=== PATIENT | female | born 1970 | race American Indian/Alaskan Native ===

== ENCOUNTER 2016-12-12 07:59 | Emergency (ER) | payer SELFPAY ==
[2016-12-12 09:34] LABS: Basophils % (Auto) 1.2 % (0.0-1.8); Eosinophils % (Auto) 1.1 % (0.0-4.3); Hematocrit 35.7 % (30.3-42.9); Hemoglobin 11.5 gm/dl (10.1-14.3); Mean Corpuscular HGB Conc 32 % (30-34); Mean Corpuscular Hemoglobin 27 pg (28-32); Mean Corpuscular Volume 84 fl (79-97); Platelet Count 232 K/mm3 (140-440); Red Blood Count 4.27 M/mm3 (3.65-5.03); Red Cell Distribution Width 15.6 % (13.2-15.2); White Blood Count 4.3 K/mm3 (4.5-11.0)
[2016-12-12 09:47] LABS: Alanine Aminotransferase 8 units/L (7-56); Albumin 3.6 g/dL (3.9-5); Albumin/Globulin Ratio 0.9 %; Alkaline Phosphatase 56 units/L (35-129); Anion Gap 14 mmol/L; BUN/Creatinine Ratio 14.28; Blood Urea Nitrogen 10 mg/dL (7-17); Calcium 8.9 mg/dL (8.4-10.2); Carbon Dioxide 25 mmol/L (22-30); Chloride 103.4 mmol/L (98-107); Glucose 84 mg/dL (65-100); Lipase 49 units/L (13-60); Potassium 4.5 mmol/L (3.6-5.0); Sodium 138 mmol/L (137-145); Total Protein 7.4 g/dL (6.3-8.2)
[2016-12-12] MEDS ORDERED: NACL 0.9% 1000 ML 1,000 ML IV ONE (09:53)
[2016-12-12] MEDS ORDERED: MILK OF MAGNESIA PO ONE (09:54)
[2016-12-12 10:06] LABS: Bacteria,Urine 1+ /HPF (Negative); Bilirubin,Urine NEG (Negative); Blood,Urine NEG (Negative); Ketones,Urine NEG (Negative); Leukocyte Esterase,Urine NEG (Negative); Mucus,Urine FEW /HPF; Nitrite,Urine NEG (Negative); Protein,Urine <15 mg/dL mg/dL (Negative); Urobilinogen,Urine < 2.0 mg/dL (<2.0)
[2016-12-12] MEDS ORDERED: NACL ONE (12:11)
--- NOTE | 2016-12-12 12:43 | Emergency Department Report ---
ED Abdominal Pain HPI - General Chief Complaint: Abdominal Pain Stated Complaint: ABD PAIN Time Seen by Provider: 12/12/16 09:50 Source: patient Mode of arrival: Ambulatory Limitations: No Limitations - History of Present Illness MD Complaint: abdominal pain -: Gradual Location: diffuse, periumbilical Radiation: none Migration to: periumbilical Severity scale (0 -10): 0 Quality: cramping Consistency: constant Improves With: nothing Worsens With: nothing Associated Symptoms: denies other symptoms - Related Data Previous Rx's Medication Instructions Recorded Last Taken Type traMADol [Ultram] 50 mg PO Q6HR PRN #20 tablet 12/12/16 Unknown Rx Allergies Allergy/AdvReac Type Severity Reaction Status Date / Time No Known Allergies Allergy Verified 12/12/16 08:50 ED Review of Systems ROS: Stated complaint: ABD PAIN Other details as noted in HPI Comment: All other systems reviewed and negative Gastrointestinal: abdominal pain, nausea Musculoskeletal: as per HPI Skin: as per HPI ED Past Medical Hx - Past Medical History Previous Medical History?: No - Surgical History Past Surgical History?: No - Social History Smoking Status: Current Every Day Smoker Substance Use Type: Prescribed - Medications Home Medications: Home Medications Medication Instructions Recorded Confirmed Last Taken Type traMADol [Ultram] 50 mg PO Q6HR PRN #20 tablet 12/12/16 Unknown Rx ED Physical Exam - General Limitations: No Limitations General appearance: alert, in no apparent distress - Head Head exam: Present: atraumatic - Eye Eye exam: Present: normal appearance - ENT ENT exam: Present: normal exam - GI/Abdominal GI/Abdominal exam: Present: soft, normal bowel sounds - Extremities Exam Extremities exam: Present: normal inspection - Back Exam Back exam: Present: normal inspection ED Course Vital Signs 12/12/16 12/12/16 12/12/16 08:50 10:18 11:56 Temperature 98.3 F 98.2 F Pulse Rate 58 L 62 55 L Respiratory 17 18 18 Rate Blood Pressure 140/95 Blood Pressure 132/78 152/87 [Left] O2 Sat by Pulse 100 100 Oximetry 12/12/16 15:22 Temperature Pulse Rate 62 Respiratory 16 Rate Blood Pressure Blood Pressure 132/74 [Left] O2 Sat by Pulse 98 Oximetry - Reevaluation(s) Reevaluation #1: 12/12/16 14:46 SPOKE WITH PATIENT AT LENGTH REGARDING CT SCAN FINDINGS. SHE STATES SHE WAS TOLD TWO YEARS AGO, SHE WAS TOLD SHE HAD A MASS FROM [place] WAS TRANSFERRED FROM [facility] TO [place] BUT AT [place] SHE WAS ADVISED TO F/U WITH [facility]OUNT[facility] BUT SHE NEVER DID. . I [facility]PO[facility]ITTMAN[facility] WHO REC[facility]MENDED D/C HOME, F/U WITH HER ON THURSDAY. 12/12/16 15:31 ED Medical Decision Making - Lab Data Result diagrams: 12/12/16 09:14 12/12/16 09:14 Critical care attestation.: If time is entered above; I have spent that time in minutes in the direct care of this critically ill patient, excluding procedure time. ED Disposition Clinical Impression: Pelvic mass in female Disposition: DC- TO HOME OR SELFCARE Is pt being admited?: No Does the pt Need Aspirin: No Condition: Stable Instructions: Abdominal Pain (ED) Prescriptions: traMADol [Ultram] 50 mg PO Q6HR PRN #20 tablet PRN Reason: Pain Referrals: YOLIE ALLEN MD [Staff Physician] - 3-5 Days KAREN PITTMAN MD [Staff Physician] - 3-5 Days PRIMARY [facility]ARE, [Primary Care Provider] - 3-5 Days TASHIA WOODS MD [Staff Physician] - 3-5 Days
--- NOTE | 2016-12-12 13:09 | Cat Scan Report ---
CT scan of abdomen and pelvis with IV contrast: Compared to 12/16/14. History: Abdominal pain distention. Findings: Normal lung bases. No pleural pericardial effusion. Normal liver spleen and pancreas. Normal gallbladder. Normal adrenals and kidney parenchyma and urinary bladder. Bladder is emptied and displaced. There is a large complex heterogeneous soft tissue mass occupying the entire mid and lower abdomen and extending down into the pelvis. Low density areas are identified within the mass and the mass appears lobulated. Mass measures approximately 24 x 11 x 10 cm. No significant interval change. There is moderate amount of fluid noted in the peritoneum. There is extrinsic compression noted on the adjacent bowel. There is no bowel distention or obstruction seen. Normal aorta no evidence of adenopathy. Impression: Large abdominal mass with pelvic extension, probably of ovarian origin among others. No significant interval change. Probably increase in intraperitoneal fluid.
[2016-12-12 15:23] VITALS: BP 132/74
== END 2016-12-12 15:40 | disposition home or self-care (01) ==
LOC: ED 07:59
DX: R19.00 Intra-abdominal and pelvic swelling, mass and lump, unspecified site (principal); R10.84 Generalized abdominal pain; F17.210 Nicotine dependence, cigarettes, uncomplicated
CPT/HCPCS: 36415; 74177; 80053; 81001; 83690; 84703; 85025; 96360; 96361; 99284; J7030; Q9967

== ENCOUNTER 2019-03-29 08:36 | Emergency (ER) | payer SELFPAY ==
[2019-03-29 09:29] LABS: Basophils % (Auto) 0.9 % (0.0-1.8); Eosinophils % (Auto) 0.4 % (0.0-4.3); Hematocrit 34.6 % (30.3-42.9); Hemoglobin 11.3 gm/dl (10.1-14.3); Lymphocytes # (Auto) 1.6 K/mm3 (1.2-5.4); Lymphocytes % (Auto) 34.8 % (13.4-35.0); Mean Corpuscular HGB Conc 33 % (30-34); Mean Corpuscular Volume 85 fl (79-97); Monocytes # (Auto) 0.3 K/mm3 (0.0-0.8); Monocytes % (Auto) 5.6 % (0.0-7.3); Platelet Count 221 K/mm3 (140-440); Red Blood Count 4.06 M/mm3 (3.65-5.03); Red Cell Distribution Width 15.7 % (13.2-15.2)
--- NOTE | 2019-03-29 09:43 | Emergency Department Report ---
HPI - General Chief Complaint: Abdominal Pain Time Seen by Provider: 03/29/19 09:39 - HPI HPI: 48-year-old -Swiss female presents to the emergency department with complaint of lower abdominal and pelvic pain that been going on for the past few days. It is associated with some mild dysuria. However the patient denies any nausea, vomiting, fever, vaginal bleeding or discharge. The patient says that she believes it is due to fibroids. She says she has "not had the surgery yet because I don't have insurance." The patient says that they were last evaluated "the last time I was here." In reviewing the CT scan of the abdomen and pelvis that was done here in 2017 she appears to have some unidentified pelvic mass seen in the abdomen that extends down into the pelvis and appears to be ovarian in origin. Patient does not have any primary care physician or [facility]. She has not taken anything for her symptoms prior to arrival today. ED Past Medical Hx - Past Medical History Previous Medical History?: No - Surgical History Past Surgical History?: No - Social History Smoking Status: Current Every Day Smoker Substance Use Type: None - Medications Home Medications: Home Medications Medication Instructions Recorded Confirmed Last Taken Type traMADoL [Ultram] 50 mg PO Q6HR PRN #20 tablet 12/12/16 Unknown Rx traMADoL [Ultram 50 MG tab] 50 mg PO Q8HR PRN #12 tablet 03/29/19 Unknown Rx ED Review of Systems ROS: Stated complaint: ABD PAIN Other details as noted in HPI Comment: All other systems reviewed and negative Constitutional: denies: chills, fever Gastrointestinal: abdominal pain. denies: vomiting Genitourinary: dysuria. denies: discharge, abnormal menses Musculoskeletal: denies: back pain Physical Exam - Physical Exam Vital Signs: Vital Signs 03/29/19 08:45 Temperature 97.5 F L Pulse Rate 68 Respiratory 20 Rate Blood Pressure 139/84 O2 Sat by Pulse 100 Oximetry Physical Exam: GENERAL: The patient is well-developed well-nourished. HENT: Normocephalic. Atraumatic. Patient has moist mucous membranes. EYES: Extraocular motions are intact. NECK: Supple. Trachea is midline. CHEST/LUNGS: Clear to auscultation. There is no respiratory distress noted. HEART/CARDIOVASCULAR: Regular. There is no tachycardia. There is no murmur. ABDOMEN: Abdomen is is firm to the lower half of the abdomen. No guarding. There is some mild tenderness to palpation. Patient has normal bowel sounds. There is some abdominal distention to the lower half of the abdomen. SKIN: Skin is warm and dry. NEURO: The patient is awake, alert, and oriented. The patient is cooperative. The patient has no focal neurologic deficits. Normal speech. MUSCULOSKELETAL: There is no tenderness or deformity. There is no evidence of acute injury. ED Course Vital Signs 03/29/19 08:45 Temperature 97.5 F L Pulse Rate 68 Respiratory 20 Rate Blood Pressure 139/84 O2 Sat by Pulse 100 Oximetry ED Medical Decision Making - Lab Data Result diagrams: 03/29/19 09:09 03/29/19 09:09 - Radiology Data Radiology results: report reviewed CT ABDOMEN AND PELVIS WITH CONTRAST INDICATION / CLINICAL INFORMATION: hx of pe lvic mass. Abd and pelvic pain. TECHNIQUE: Axial CT images were obtained through the abdomen and pelvis after IV contrast. All CT scans at this location are performed using CT dose reduction for [employer] by means of automated exposure control. COMPARISON: 12/12/2016. FINDINGS: LOWER CHEST: No significant abnormality. LIVER: No significant abnormality. GALLBLADDER: No significant abnormality. BILE DUCTS: No significant abnormality. PANCREAS: No significant abnormality. SPLEEN: No significant abnormality. ADRENALS: No significant abnormality. RIGHT KIDNEY and URETER: No significant abnormality. LEFT KIDNEY and URETER: No significant abnormality. STOMACH and SMALL BOWEL: No significant abnormality. COLON: No significant abnormality. APPENDIX: No significant abnormality. PERITONEUM: No free fluid. No free air. No fluid collection. LYMPH NODES: No significant adenopathy. AORTA and ARTERIES: No significant abnormality. IVC and VEINS: No significant abnormality. URINARY BLADDER: No significant abnormality. REPRODUCTIVE ORGANS: Large complex mass well-defined but lobulated borders with heterogeneous internal architecture with scattered calcifications, measuring 20 cm in AP dimensions, 24 cm in width extending over distance of 30 cm with associated small amount of fluid. ADDITIONAL FINDINGS: None. SKELETAL SYSTEM: No significant abnormality. IMPRESSION: 1. Persistent large abdominal mass with a heterogeneous appearance, most likely uterine in origin-leiomyoma - Medical Decision Making This patient presents with some lower abdominal and pelvic pain. She says that she has a history of uterine fibroids, but her previous CT scan from a few years ago showed a nonspecific pelvic mass that appeared to be coming from an ovary. Her labs today at been unremarkable including CBC, metabolic panel and urinalysis. A CT scan with IV contrast was done that shows a very large abdominal mass going into the pelvis with a heterogenous appearance that radio logist says appears consistent with a leiomyoma. Vital signs have been within normal limits throughout her ED course. I explained to the patient that it is important that she follows up with an AD[facility]ER AND INSPECTOR to have this further evaluated and for treatment options to be given. She has been given a prescription for a small amount of pain medication. She will return to the emergency Department with any worsening of her symptoms or any acute distress. - Differential Diagnosis fibroid, malignancy, bladder distention Critical Care Time: No Critical care attestation.: If time is entered above; I have spent that time in minutes in the direct care of this critically ill patient, excluding procedure time. ED Disposition Clinical Impression: Pelvic mass, Leiomyoma Abdominal pain Qualifiers: Abdominal location: generalized Qualified Code(s): R10.84 - Generalized abdominal pain Disposition: TO HOME OR SELFCARE Is pt being admited?: No Condition: Stable Instructions: Uterine Fibroids (ED), Abdominal Pain (ED) Additional Instructions: Please follow-up with a AD[facility]ER AND INSPECTOR in the next few days regarding your pelvic mass and possible large fibroids. Return to the emergency Department with any worsening of your symptoms or any acute distress. You have been prescribed a medication that is sedating and therefore should not be taken prior to driving, working, and responsible for children and in no way should be mixed with alcohol of any quantity. Prescriptions: traMADoL [Ultram 50 MG tab] 50 mg PO Q8HR PRN #12 tablet PRN Reason: Pain Referrals: [facility] [Provider Group] - 3-5 Days [facility] [Provider Group] - 3-5 Days [facility] [Provider Group] - 3-5 Days Time of Disposition: 12:32
[2019-03-29 09:56] LABS: Alanine Aminotransferase 10 units/L (7-56); Albumin 4.2 g/dL (3.9-5); BUN/Creatinine Ratio 22; Blood Urea Nitrogen 13 mg/dL (7-17); Calcium 9.3 mg/dL (8.4-10.2); Hemolysis Index 3
[2019-03-29 12:09] LABS: Bilirubin,Urine NEG (Negative); Blood,Urine NEG (Negative); Color,Urine Yellow (Yellow); Mucus,Urine FEW /HPF; Protein,Urine <15 mg/dL mg/dL (Negative); Urobilinogen,Urine < 2.0 mg/dL (<2.0)
--- NOTE | 2019-03-29 12:29 | Cat Scan Report ---
CT ABDOMEN AND PELVIS WITH CONTRAST INDICATION / CLINICAL INFORMATION: hx of pelvic mass. Abd and pelvic pain. TECHNIQUE: Axial CT images were obtained through the abdomen and pelvis after IV contrast. All CT scans at this location are performed using CT dose reduction for [employer] by means of automated exposure control. COMPARISON: 12/12/2016. FINDINGS: LOWER CHEST: No significant abnormality. LIVER: No significant abnormality. GALLBLADDER: No significant abnormality. BILE DUCTS: No significant abnormality. PANCREAS: No significant abnormality. SPLEEN: No significant abnormality. ADRENALS: No significant abnormality. RIGHT KIDNEY and URETER: No significant abnormality. LEFT KIDNEY and URETER: No significant abnormality. STOMACH and SMALL BOWEL: No significant abnormality. COLON: No significant abnormality. APPENDIX: No significant abnormality. PERITONEUM: No free fluid. No free air. No fluid collection. LYMPH NODES: No significant adenopathy. AORTA and ARTERIES: No significant abnormality. IVC and VEINS: No significant abnormality. URINARY BLADDER: No significant abnormality. REPRODUCTIVE ORGANS: Large complex mass well-defined but lobulated borders with heterogeneous interna l architecture with scattered calcifications, measuring 20 cm in AP dimensions, 24 cm in width extend ing over distance of 30 cm with associated small amount of fluid. ADDITIONAL FINDINGS: None. SKELETAL SYSTEM: No significant abnormality. IMPRESSION: 1. Persistent large abdominal mass with a heterogeneous appearance, most likely uterine in origin-elizabeth landryyoariel Signer Name: Mat Vela MD Signed: 03/29/2019 12:24 PM Workstation Name: [id number]
[2019-03-29 12:45] VITALS: BP 132/88
== END 2019-03-29 12:46 | disposition home or self-care (01) ==
LOC: ED 08:36
DX: R10.84 Generalized abdominal pain (principal); D21.4 Benign neoplasm of connective and other soft tissue of abdomen; F17.200 Nicotine dependence, unspecified, uncomplicated
CPT/HCPCS: 36415; 74177; 80053; 81001; 83690; 85025